=== PATIENT | male | born 1990 | race Caucasian/White ===

== ENCOUNTER → 2019-07-29 | Day surgery (SDC) | payer OTHER ==
[~2019-07-29] MED LIST: CALCIUM WITH M1 EAC1 PO; FENTANYL CITRATE/PF 100MCG/2 ML INJ ONE; GLUCAGON FOR INJ 1 MG VIAL ONE; HYOSCYAMINE 0.125 MG TAB ONE; MIDAZOLAM HCL 5 MG/ML VIAL ONE; MULTIVITAMINS1 EAC7 PO; PROPOFOL IV EMULSION 10 MG/ML 50 ML VIAL ONE; VITAMIN C500 M4 PO
[2019-07-29 12:00] VITALS: BP 117/70
--- NOTE | 2019-07-29 18:50 | Operative Report ---
DATE OF PROCEDURE: 07/29/2019 SURGEON: Moody Shine MD PROCEDURE: Colonoscopy with polypectomy and biopsies. INDICATIONS FOR COLONOSCOPY: Rectal pain. MEDICATIONS: The patient was done under MAC, please see anesthesiologist's note. PROCEDURE IN DETAIL: With the patient in the left lateral decubitus position, the flexible fiberoptic Olympus colonoscope was inserted into the rectum with ease and advanced all the way to the cecum. A minute polyp was hot biopsied from the cecum. The ascending and the transverse appeared to be within normal limits. One polyp was hot biopsied from the descending colon. Mucosa overlying the sigmoid appeared to be within normal limits. There was evidence of some mild proctitis in the rectum and biopsies were obtained. The scope was then retroflexed into the distal rectum and moderate-sized internal hemorrhoids were noted, none of which was actively bleeding. The scope was then straightened out, it was subsequently withdrawn, and the patient tolerated the procedure well. IMPRESSION: 1. Cecal polyp, hot biopsied. 2. Descending colon polyp, hot biopsied. 3. Proctitis, mild, biopsied. 4. Internal hemorrhoids, none actively bleeding. PLAN: Follow up histology. Initiate VSL#3 one p.o. b.i.d. The patient might benefit from a followup colonoscopy in 5 years. Moody Shine MD [facility] – [place], [place]/MODL /[id number]
== END | disposition home or self-care (01) ==
LOC: OR 09:00
PROVIDERS: ATTEND Internal Medicine Gastroenterology
DX: K59.00 Constipation, unspecified (principal); K63.5 Polyp of colon; K62.89 Other specified diseases of anus and rectum; K64.8 Other hemorrhoids; Z88.3 Allergy status to other anti-infective agents
CPT/HCPCS: 45380; 45384; J1610; J2250; J2704; J3010